=== PATIENT | female | born 1950 | race Two or more races ===

== ENCOUNTER 2019-10-11 17:36 | Emergency (ER) | payer MEDICARE, OTHER ==
[~2019-10-11] VITALS: Ht 157.5 cm; Wt 55.3 kg
[~2019-10-11 17:36] MED LIST: ALBU8.5H8 IH; ASPI-495 PO; BUPR300T52 PO; CALC-1026 PO; CETI5TAB22 PO; CHOL100040 PO; DICL100G14 TP; ESTRACE VAGINAL; FLUT50DI IH; LEVO125T8 PO; LOVA40TA2 PO; MAGN400T8 PO; METO25TA4 PO; OMEP20CA15 PO; PROC5TAB25 PO; TRIA1CAP6 PO; ZIPR40CA2 PO
--- NOTE | 2019-10-11 17:39 | NUR ---
CALLED FOR TRIAGE NOT IN THE WAITING ROOM
--- NOTE | 2019-10-11 17:45 | NUR ---
bib , c/o right hip and lower back pain s/p fall 10/01/19, -ko 10/10 pain scale, to ER bed 9, hooked to monitor, changed to hosp gown, warm blanket provided, awaiting Md vaughan.
--- NOTE | 2019-10-11 18:00 | NUR ---
EAMON DUARTE AT BEDSIDE
--- NOTE | 2019-10-11 19:14 | NUR ---
Patient discharged to home with in stable condition. Written and verbal after care instructions given. Patient verbalizes understanding of instruction.
--- NOTE | 2019-10-11 19:17 | NUR ---
Assisted to waiting room via wheelchair. waiting for patient in waiting room.
[2019-10-11 19:26] VITALS: BP 152/96
== END 2019-10-11 19:27 | disposition home or self-care (01) ==
LOC: ER 17:44
DX: S22.088A Other fracture of T11-T12 vertebra, initial encounter for closed fracture (principal); M25.551 Pain in right hip; I10 Essential (primary) hypertension; E78.00 Pure hypercholesterolemia, unspecified; J45.909 Unspecified asthma, uncomplicated; E11.9 Type 2 diabetes mellitus without complications; Z98.890 Other specified postprocedural states; Z88.2 Allergy status to sulfonamides; Z79.899 Other long term (current) drug therapy; Z79.82 Long term (current) use of aspirin; W01.0XXA Fall on same level from slipping, tripping and stumbling without subsequent striking against object, initial encounter; Y93.89 Activity, other specified; Y92.89 Other specified places as the place of occurrence of the external cause; Y99.8 Other external cause status
CPT/HCPCS: 72100-TC; 73502